=== PATIENT | female | born 1965 | race American Indian/Alaskan Native ===

== ENCOUNTER 2021-11-15 19:58 | Emergency (ER) | payer SELFPAY ==
[2021-11-15 20:08] VITALS: BP 224/110
--- NOTE | 2021-11-16 10:13 | Electrocardiograph Report ---
[facility] Test Date: 2021-11-15 Test Time: 20:14:09 Pat Name: FRANSISCO GUZMAN Department: Room: Gender: F Director Of Patient Care: : 1965 Requested By: FLORENCE GUTIERREZ Order Number: [id number] Reading MD: Connor Geiger Measurements Intervals [place] Rate: 99 P: 58 W[place]: 182 QRS: -9 QRSD: 82 T: 65 QT: 362 QTc: 464 Interpretive Statements Sinus rhythm Abnormal Q suggests anterior infarct No previous ECG available for comparison Electronically Signed On 11-16-2021 10:12:40 EDT by Connor Geiger
== END 2021-11-16 02:15 | disposition left against medical advice (07) ==
LOC: ED 19:58
DX: T63.391A Toxic effect of venom of other spider, accidental (unintentional), initial encounter (principal); I10 Essential (primary) hypertension; Z53.21 Procedure and treatment not carried out due to patient leaving prior to being seen by health care provider; Y92.89 Other specified places as the place of occurrence of the external cause
CPT/HCPCS: 93005